=== PATIENT | female | born 1975 | race Caucasian/White ===

== ENCOUNTER → 2017-02-15 | Outpatient (CLI) | payer OTHER ==
[2017-02-15 11:20] LABS: HCG, SERUM QUANTITATIVE 169 MIU/ML
[2017-02-15 11:22] LABS: LUTEINIZING HORMONE < 0.1 mIU/mL
[2017-02-15 11:23] LABS: ESTRADIOL 1356.9 PG/ML
[2017-02-15 13:44] LABS: PROGESTERONE 79.4 NG/ML
== END ==
LOC: M LAB 09:57
PROVIDERS: ATTEND Student in an Organized Health Care Education/Training Program
DX: N97.9 Female infertility, unspecified (principal)

== ENCOUNTER → 2017-02-17 | Outpatient (CLI) | payer OTHER ==
[2017-02-17 11:18] LABS: HCG, SERUM QUANTITATIVE 406 MIU/ML
[2017-02-17 11:23] LABS: LUTEINIZING HORMONE < 0.1 mIU/mL
[2017-02-17 11:24] LABS: ESTRADIOL 1772.6 PG/ML
== END ==
LOC: M LAB 10:34
PROVIDERS: ATTEND Student in an Organized Health Care Education/Training Program
DX: N97.9 Female infertility, unspecified (principal)

== ENCOUNTER 2017-10-06 07:19 | Inpatient (IN) | payer OTHER ==
[2017-10-06] MEDS: LACTATED RINGER'S 1000 ML IV (08:00)
[2017-10-06] MEDS ORDERED: LACTATED RINGER'S 1000 ML IV (08:00)
[2017-10-06] MEDS ORDERED: LR 1,000 ML IV (08:00)
[2017-10-06 08:21] LABS: HEMATOCRIT 32.2 % (36.0-47.0); HEMOGLOBIN 10.9 g/dl (12.0-16.0); MEAN CORPUSCULAR HEMOGLOBIN 31.1 pg (27.0-33.0); MEAN CORPUSCULAR HGB CONC 33.9 g/dl (32.0-36.5); MEAN CORPUSCULAR VOLUME 91.7 fl (80.0-96.0); PLATELET COUNT, AUTOMATED 184 10^3/uL (150-450); RED BLOOD COUNT 3.51 10^6/uL (4.00-5.40); RED CELL DISTRIBUTION WIDTH 13.2 % (11.5-14.5); WHITE BLOOD COUNT 8.1 10^3/uL (4.0-10.0)
[2017-10-06] MEDS: BICITRA 30ML SOLN UDC PO (08:33)
[2017-10-06] MEDS ORDERED: ONDANSETRON 4MG/2ML VIAL (J2405) IV ×4 (08:45→10:30)
[2017-10-06] MEDS ORDERED: NALOXONE INJ 0.4 MG/1 ML VIAL (J2310) IV ×2 (08:45)
[2017-10-06] MEDS ORDERED: NALBUPHINE HCL 10 MG/ML AMP (J2300) IV (08:45)
[2017-10-06] MEDS ORDERED: METOCLOPRAMIDE INJ 10MG/2ML VIAL (J2765) IV (08:45)
[2017-10-06] MEDS ORDERED: MORPHINE PRES-FREE INJ 10 MG/10 ML VIAL (J2274) As Ordered (08:46)
[2017-10-06] MEDS ORDERED: OXYTOCIN INJ 10 UNITS/ML VIAL (J2590) As Ordered ×2 (08:46)
[2017-10-06] MEDS ORDERED: ePHEDrine INJ 50 MG/ML VIAL As Ordered (08:58)
[2017-10-06] MEDS: PRENATAL VITAMINS CHEWABLE TABLET PO (09:00)
[2017-10-06] MEDS ORDERED: ONDANSETRON 4MG/2ML VIAL (J2405) As Ordered (09:06)
[2017-10-06] MEDS ORDERED: KETOROLAC 60 MG/2 ML VIAL (J1885) As Ordered (09:06)
[2017-10-06] MEDS ORDERED: DESFLURANE 240 ML INHALANT As Ordered (09:21)
[2017-10-06] MEDS: LR 1,000 ML IV ×2 (10:03→18:03)
[2017-10-06] MEDS ORDERED: MOM 30ML SUSPENSION UDC PO (10:15)
[2017-10-06] MEDS ORDERED: METHYLERGONOVINE MALEATE 0.2 MG TAB PO (10:15)
[2017-10-06] MEDS ORDERED: MEASLES,MUMPS,RUBELLA VACCINE INJ (MMR-II) (90707) SC (10:15)
[2017-10-06] MEDS ORDERED: PERCOCET 5MG/325MG TAB PO (10:15)
[2017-10-06] MEDS ORDERED: RHOGAM 300 MCG (1500 IU) INJ (J2790) IM (10:15)
[2017-10-06] MEDS ORDERED: PROMETHAZINE 25 MG TAB PO (10:15)
[2017-10-06] MEDS ORDERED: fentaNYL 100 MCG/2 ML INJECTION (J3010) IV ×2 (10:30)
[2017-10-06] MEDS: KETOROLAC 30 MG/ML VIAL (J1885) IV ×2 (15:18→20:51)
[2017-10-06] MEDS: DOCUSATE SODIUM 100 MG CAP PO (20:51)
[2017-10-07] MEDS: KETOROLAC 30 MG/ML VIAL (J1885) IV ×2 (02:45→09:11)
[2017-10-07] MEDS: LEVOTHYROXINE 50MCG TABLET (0.05MG) PO (06:00)
[2017-10-07 07:01] LABS: HEMATOCRIT 28.6 % (36.0-47.0); HEMOGLOBIN 9.6 g/dl (12.0-16.0); MEAN CORPUSCULAR HEMOGLOBIN 30.6 pg (27.0-33.0); MEAN CORPUSCULAR HGB CONC 33.6 g/dl (32.0-36.5); MEAN CORPUSCULAR VOLUME 91.1 fl (80.0-96.0); PLATELET COUNT, AUTOMATED 175 10^3/uL (150-450); RED BLOOD COUNT 3.14 10^6/uL (4.00-5.40); RED CELL DISTRIBUTION WIDTH 13.2 % (11.5-14.5); WHITE BLOOD COUNT 8.5 10^3/uL (4.0-10.0)
[2017-10-07] MEDS: PRENATAL VITAMINS CHEWABLE TABLET PO (08:19)
[2017-10-07] MEDS: IBUPROFEN 800 MG TAB PO (17:31)
[2017-10-07] MEDS: DOCUSATE SODIUM 100 MG CAP PO (21:09)
[2017-10-07] MEDS: MAALOX 30 ML SUSP *UDC PO (23:04)
[2017-10-08] MEDS: IBUPROFEN 800 MG TAB PO ×2 (00:45→09:39)
[2017-10-08] MEDS: PERCOCET 5MG/325MG TAB PO ×2 (00:47→12:48)
[2017-10-08] MEDS: LEVOTHYROXINE 50MCG TABLET (0.05MG) PO (05:33)
[2017-10-08] MEDS: PRENATAL VITAMINS CHEWABLE TABLET PO (09:38)
== END 2017-10-08 17:05 | disposition home or self-care (01) | DRG 775 ==
LOC: M LDI 07:19 → M OBS 13:57
PROVIDERS: Student in an Organized Health Care Education/Training Program
PROC: 0VTTXZZ Resection of Prepuce, External Approach (ICD-10-PCS; principal; 2017-10-06 08:39)
DX: O43.193 Other malformation of placenta, third trimester (principal); Z37.0 Single live birth; Z3A.37 37 weeks gestation of pregnancy; O09.523 Supervision of elderly multigravida, third trimester; O34.211 Maternal care for low transverse scar from previous cesarean delivery; K21.9 Gastro-esophageal reflux disease without esophagitis; O99.62 Diseases of the digestive system complicating childbirth; K59.00 Constipation, unspecified; F32.9 Major depressive disorder, single episode, unspecified; O99.344 Other mental disorders complicating childbirth

== ENCOUNTER → 2018-11-13 | Outpatient (CLI) | payer OTHER ==
[~2018-11-13] MED LIST: COLA100C5 PO; FIBEPOW PO; FISH500C PO; LEVO50TA5 PO; MOTR200T44 PO; OXYC1TAB23 PO; PRENTAB55 PO; VITA100066 PO; [UNRECOGNIZED DRUG - REMARK] PO
[2018-11-13 11:49] LABS: BASO % 0.7 % (0.0-1.0); EOS % 0.6 % (0.0-3.0); HEMATOCRIT 38.9 % (36.0-47.0); LYMPH # 2.7 10^3/uL (1.5-4.5); LYMPH % 49.6 % (24.0-44.0); MEAN CORPUSCULAR HEMOGLOBIN 30.5 pg (27.0-33.0); MEAN CORPUSCULAR HGB CONC 33.4 g/dl (32.0-36.5); MEAN CORPUSCULAR VOLUME 91.3 fl (80.0-96.0); MONO # 0.3 10^3/uL (0.0-0.8); MONO % 5.2 % (0.0-5.0); NEUTROPHILS # 2.3 10^3/uL (1.8-7.7); NEUTROPHILS % 43.9 % (36.0-66.0); PLATELET COUNT, AUTOMATED 248 10^3/uL (150-450); RED BLOOD COUNT 4.26 10^6/uL (4.00-5.40); WHITE BLOOD COUNT 5.3 10^3/uL (4.0-10.0)
[2018-11-13 12:32] LABS: HEMOGLOBIN A1c 5.1 %
[2018-11-13 12:38] LABS: ALBUMIN 3.7 GM/DL (3.2-5.2); ALT/SGPT 20 U/L (12-78); BILIRUBIN,TOTAL 0.4 MG/DL (0.2-1.0); BLOOD UREA NITROGEN 11 MG/DL (7-18); CALCIUM LEVEL 8.4 MG/DL (8.5-10.1); CARBON DIOXIDE LEVEL 28 MEQ/L (21-32); CHLORIDE LEVEL 107 MEQ/L (98-107); CHOLESTEROL LEVEL 202 MG/DL (<200); CHOLESTEROL RISK RATIO 4.208 (<5); FREE T4 0.93 NG/DL (0.76-1.46); GLOMERULAR FILTRATION RATE > 60.0 (>58); GLUCOSE, FASTING 87 MG/DL (70-100); HDL CHOLESTEROL 48 MG/DL (>40); LDL CHOLESTEROL 139 MG/DL (<100); NON-HDL-C 154 MG/DL; POTASSIUM SERUM 3.7 MEQ/L (3.5-5.1); SODIUM LEVEL 140 MEQ/L (136-145); THYROID PEROXIDASE ANTIBODY 323.1 U/ML (<60.0); TOTAL PROTEIN 6.7 GM/DL (6.4-8.2); TRIGLYCERIDES LEVEL 73 MG/DL (<150)
== END ==
LOC: M LAB 10:31
PROVIDERS: ATTEND Physician Assistant
DX: Z13.29 Encounter for screening for other suspected endocrine disorder (principal); E03.9 Hypothyroidism, unspecified

== ENCOUNTER → 2018-11-27 | Outpatient (REF) | payer OTHER ==
[2018-11-29 14:25] LABS: HPV HYBRID CAPTURE II Negative (Negative)
== END ==
LOC: M LAB REF 17:12
PROVIDERS: ATTEND Family Medicine
DX: Z01.419 Encounter for gynecological examination (general) (routine) without abnormal findings (principal)